=== PATIENT | female | born 1985 | race Caucasian/White ===

== ENCOUNTER 2017-11-15 07:38 | Emergency (ER) | payer BC ==
[2017-11-15 08:00] VITALS: BP 121/85
--- NOTE | 2017-11-15 08:28 | UC ---
Angelica Strickland Nilda, scribed for Iram Milligan MD on 11/15/17 at 0809 . Respiratory Complaint HPI - HPI Summary HPI Summary: This patient is a 32 year old F presenting to [facility] [place] with a chief complaint of constant chest and back tightness since waking up this morning. The patient rates the pain 4/10 in severity. Pt took motrin with little improvement. Patient reports productive cough (green, past 2 days), sinus and chest congestion, drainage in back of throat, nasal drainage, sinus tenderness, and headache. Patient denies fever, chills, wheezing, and SOB. Pt states recent sick contact with son who had pneumonia last week and who had bronchitis one month ago. Pt states shes taken ibuprofen, Emergen-C, and cough syrup. Today pt only took ibuprofen today. No prescribed medication except IUD. Pt smokes but denies recreational drug use. Flu vaccine not UTD. Patients medications reviewed. - History of Current Complaint Stated Complaint: COUGH Hx Obtained From: Patient Hx Last Menstrual Period: 06/20/16 Onset/Duration: Sudden Onset, Lasting Hours, Still Present Timing: Constant Severity Currently: Moderate Pain Intensity: 4 Pain Scale Used: 0-10 Numeric Character: Cough: Productive, Sputum Description: - green Aggravating Factors: Nothing Alleviating Factors: Nothing Associated Signs And Symptoms: Positive: Nasal Congestion, Sinus Discomfort. Negative: Dyspnea, Fever, Chills, Wheezing - Allergies/Home Medications Allergies/Adverse Reactions: Allergies Allergy/AdvReac Type Severity Reaction Status Date / Time Cephalexin [From Keflex] Allergy Severe Hives Verified 11/15/17 07:55 Codeine Allergy Severe Hives Verified 11/15/17 07:55 Erythromycin Allergy Severe GI Upset Verified 11/15/17 07:55 Penicillins Allergy Severe Hives Verified 11/15/17 07:55 Home Medications: Home Medications Cough Syrup 11/15/17 [History] Ibuprofen TAB* [Motrin TAB* 600 MG] 11/15/17 [History] PMH/Surg Hx/FS Hx/Imm Hx Previously Healthy: Yes - Surgical History Surgical History: Yes Surgery Procedure, Year, and Place: CHOLECYSTECTOMY, TONSILLECTOMY - Family History Known Family History: Positive: Hypertension, Diabetes - Social History Occupation: Employed Full-time Lives: With Family Alcohol Use: Occasionally Substance Use Type: None Smoking Status (MU): Light Every Day Tobacco Smoker Type: Cigarettes Amount Used/How Often: 1/2 PPD Review of Systems Constitutional: Other - negative fever, chills Skin: Negative Eyes: Negative ENT: Nasal Discharge, Sinus Congestion, Sinus Pain/Tenderness, Other - drainage in back of throat Respiratory: Cough - productive, green, 2days, Other - negative SOB, wheezing Cardiovascular: Chest Pain - tightness, Other - chest congestion Musculoskeletal: Other: - back tightness Neurological: Headache All Other Systems Reviewed And Are Negative: Yes Physical Exam Triage Information Reviewed: Yes Appearance: Well-Appearing, No Pain Distress, Well-Nourished Vital Signs: Initial Vitals Temp Pulse Resp BP Pulse Ox 99 F 87 16 121/85 100 11/15/17 07:57 11/15/17 07:57 11/15/17 07:57 11/15/17 07:57 11/15/17 07:57 Vital Signs Reviewed: Yes Eye Exam: Normal Eyes: Positive: Conjunctiva Clear ENT: Positive: Nasal congestion, Other - TM x 2 clear turbinates inflammed + max sinus pain + PND no erythema, no exudate No lymphadenopathy Dental Exam: Normal Neck exam: Normal Neck: Positive: Supple, Nontender, No Lymphadenopathy Respiratory: Positive: No accessory muscle use, Other: - + scattered wheeze, no rhonci. Negative: Respiratory distress Cardiovascular Exam: Normal Cardiovascular: Positive: RRR, No Murmur, Pulses Normal Abdominal Exam: Normal Abdomen Description: Positive: Nontender, No Organomegaly Bowel Sounds: Positive: Present Musculoskeletal Exam: Normal Musculoskeletal: Positive: Strength Intact Neurological Exam: Normal Neurological: Positive: Alert Psychological Exam: Normal Skin Exam: Normal UC Diagnostic Evaluation - Radiology Radiology Interpretation Completed By: Radiologist - CXR, per radiologist, reveals no active cardiopulmonary disease. - EKG Cardiac Rate: NL Cardiac Rhythm: Sinus: Normal - 77 bpm, no acute ST/T changes ST Segment: Normal Re-Evaluation - Re-Evaluation First Eval Re-Evaluation Time: 08:31 Comment: Reviewed EKG results with pt. Second Eval Re-Evaluation Time: 09:15 Change: Improved Comment: Pt feels better. Reviewed imaging results. Will Rx flonase, Doxy, albuterol. work note. secretion precaution. pt comfortable and in agreement with plan Respiratory Course/Dx - Course Course Of Treatment: Pt with cough, sinus congestion, PND. Pt with chest congestion and tightness today. Pt with + sick contact. Will check EKG, CXR, and give neb. Very little suspicion for cardiac origin - only risk factor tobacco - but reports some tightness. Pt in agreement with plan. An EKG reveals 77bpm, NSR, no acute ST/T changes. CXR, per radiologist, reveals no active cardiopulmonary disease. Dr. Milligan has reviewed this radiology report. - Differential Dx/Diagnosis Provider Diagnoses: acute bronchitis Discharge - Discharge Plan Condition: Stable Disposition: HOME Prescriptions: Albuterol HFA INHALER* [Ventolin HFA Inhaler*] 1 puff INH Q4H PRN #1 mdi PRN Reason: wheeze DOXYcycline CAP(*) [DOXYcycline 100MG CAP(*)] 100 mg PO BID #14 cap Fluticasone NASAL SPRAY 50MCG* [Flonase NASAL SPRAY 50MCG*] 2 spray BOTH NARES DAILY #1 btl Patient Education Materials: Acute Bronchitis (ED) Forms: *Work Release Referrals: No Primary Care Phys,NOPCP [Primary Care Provider] - Additional Instructions: - Stay well hydrated. Drink plenty of non-alcoholic, non-caffinated beverages - Take antibiotics exactly as prescribed until gone. - use nasal spray as instructed - Use your albuterol puffer - 2 puffs ever 4-6 hours for the next 2 days - then as needed - These infections are spread by oral secretions. Do not share eating or drinking utensils. Frequent hand washing is important. Clean items that may get your secretions on them such as cell phones, ipads, computer mouse, television remotes AFter you have been on antibiotics for 2 days, change your toothbrush and your pillowcase. -Contact your doctor to arrange a follow-up appointment this week. Call your doctor, return here or go to the emergency department with any questions or concerns The documentation as recorded by the Angelica champagne Nilda accurately reflects the service I personally performed and the decisions made by me, Iram Milligan MD.
[2017-11-15] MEDS ORDERED: Albuterol 2.5 MG/3 ML NEB.SOL* (0.083%) INH ONE (08:32)
[2017-11-15] MEDS ORDERED: Ipratropium 0.5MG/2.5ML NEB* 0.5 MG/2.5 ML NEB.SOLN INH ONE (08:32)
--- NOTE | 2017-11-15 09:01 | RAD ---
HISTORY: Cough, sputum, COMPARISONS: None VIEWS: 4: Frontal dual-energy and lateral views of the chest. FINDINGS: CARDIOMEDIASTINAL SILHOUETTE: The cardiomediastinal silhouette is normal. NEPTALI: The neptali are normal. PLEURA: The costophrenic angles are sharp. No pleural abnormalities are noted. LUNG PARENCHYMA: The lungs are clear. ABDOMEN: The upper abdomen is clear. There is no subphrenic gas. BONES AND SOFT TISSUES: No bone or soft tissue abnormalities are noted. OTHER: None. IMPRESSION: NO ACTIVE CARDIOPULMONARY DISEASE.
== END 2017-11-15 09:37 | disposition home or self-care (01) ==
LOC: UCEAST 07:38
DX: J20.9 Acute bronchitis, unspecified (principal)
CPT/HCPCS: 71020; 93005; 99213; G0463; J7644

== ENCOUNTER 2017-12-19 14:14 | Emergency (ER) | payer BC ==
[2017-12-19 14:44] VITALS: BP 136/92
--- NOTE | 2017-12-19 14:49 | UC ---
FLU HPI - HPI Summary HPI Summary: Pt presents with continued dry cough since mid october s/p bronchitis and treatment with antibiotic. This morning she woke up with body aches and felt like she had a fever, but did not take her temperature. She says that one of her coworkers was recently diagnosed with influenza. She denies SOB, chest pain , abdominal pain, n/v/d/c. She is still smoking - History of Current Complaint Chief Complaint: UCRespiratory Stated Complaint: COUGH, BODYACHES Time Seen by Provider: 12/19/17 14:49 Hx Obtained From: Patient Hx Last Menstrual Period: IUD Onset/Duration: Gradual Onset Severity Currently: Mild Severity Initially: Mild Pain Intensity: 3 Pain Scale Used: 0-10 Numeric - Allergy/Home Medications Allergies/Adverse Reactions: Allergies Allergy/AdvReac Type Severity Reaction Status Date / Time Cephalexin [From Keflex] Allergy Severe Hives Verified 12/19/17 14:37 Codeine Allergy Severe Hives Verified 12/19/17 14:37 Erythromycin Allergy Severe GI Upset Verified 12/19/17 14:37 Penicillins Allergy Severe Hives Verified 12/19/17 14:37 PMH/Surg Hx/FS Hx/Imm Hx Previously Healthy: Yes - Surgical History Surgical History: Yes Surgery Procedure, Year, and Place: CHOLECYSTECTOMY, TONSILLECTOMY - Family History Known Family History: Positive: Hypertension, Diabetes - Social History Occupation: Employed Full-time Lives: With Family Alcohol Use: Rare Substance Use Type: None Smoking Status (MU): Light Every Day Tobacco Smoker Type: Cigarettes Amount Used/How Often: 1/2 PPD Cessation Counseling: Counseled 3+Min - 10 Min - Immunization History Most Recent Influenza Vaccination: 2016 Review of Systems Constitutional: Fever, Other - Body aches Skin: Negative Eyes: Negative ENT: Negative Respiratory: Cough Cardiovascular: Negative Gastrointestinal: Negative All Other Systems Reviewed And Are Negative: Yes Physical Exam Triage Information Reviewed: Yes Appearance: Well-Appearing, No Pain Distress, Well-Nourished Vital Signs: Initial Vital Signs Temp 98.4 F 12/19/17 14:39 Pulse 86 12/19/17 14:39 Resp 18 12/19/17 14:39 BP 136/92 12/19/17 14:39 Pulse Ox 100 12/19/17 14:39 Vital Signs Reviewed: Yes Eyes: Positive: Conjunctiva Clear. Negative: Conjunctiva Inflamed, Discharge ENT: Positive: Hearing grossly normal, Pharynx normal, TMs normal, Uvula midline. Negative: Pharyngeal erythema, Nasal congestion, Nasal drainage, TM bulging, TM dull, TM red, Tonsillar swelling, Tonsillar exudate, Hoarse voice, Sinus tenderness Neck: Positive: Supple, Nontender, No Lymphadenopathy Respiratory: Positive: Chest non-tender, Lungs clear, Normal breath sounds, No respiratory distress, No accessory muscle use Cardiovascular: Positive: RRR, No Murmur, Pulses Normal Neurological: Positive: Alert Psychological: Positive: Age Appropriate Behavior Skin: Negative: rashes Flu Course/Dx - Course Course Of Treatment: POC influenza negative. According to new guidelines - treat symptomatic patients recently exposed to influenza. Will treat with Tamiflu and rx Tessalon for her ongoing cough. - Differential Dx/Diagnosis Provider Diagnoses: Body Aches. Cough Discharge - Discharge Plan Condition: Stable Disposition: HOME Prescriptions: Benzonatate CAP* [Tessalon 100 MG CAP*] 100 mg PO TID PRN #21 cap PRN Reason: Cough Oseltamivir CAP* [Tamiflu CAP*] 75 mg PO BID #10 cap Patient Education Materials: Influenza (ED) Forms: *Work Release Referrals: No Primary Care Phys,NOPCP [Primary Care Provider] - Additional Instructions: If you develop a fever, shortness of breath, chest pain, new or worsening symptoms - please call your PCP or go to the ED. Your blood pressure was high at todays visit. Please see your primary provider within 4 weeks for recheck and re-evaluation.
== END 2017-12-19 15:10 | disposition home or self-care (01) ==
LOC: UCEAST 14:14
DX: R05 Cough (principal); M79.1 Myalgia; Z90.49 Acquired absence of other specified parts of digestive tract; Z90.89 Acquired absence of other organs; Z88.1 Allergy status to other antibiotic agents; Z88.5 Allergy status to narcotic agent; Z88.0 Allergy status to penicillin; Z71.6 Tobacco abuse counseling; F17.210 Nicotine dependence, cigarettes, uncomplicated
CPT/HCPCS: 87502; 99212; G0463

== ENCOUNTER 2018-09-08 09:55 | Emergency (ER) | payer BC ==
[2018-09-08 10:13] VITALS: BP 138/98
--- NOTE | 2018-09-08 10:23 | UC ---
Respiratory Complaint HPI - HPI Summary HPI Summary: Pt c/o chest and nasal congestion and "burning in chest", cough with deep breathing. Pt states cough is worsening and has c/o generalized malaise. Pt reports that she gets "bronchitis each year" and "knows she needs an antibiotic. " - History of Current Complaint Chief Complaint: UCRespiratory Stated Complaint: COUGH, HEADACHE, CONGESTION Time Seen by Provider: 09/08/18 10:14 Hx Obtained From: Patient Hx Last Menstrual Period: iud ?: No Onset/Duration: Gradual Onset, Lasting Days, Still Present, Worse Since - osnet Timing: Constant Severity Initially: Mild Severity Currently: Mild Pain Intensity: 4 Character: Cough: Nonproductive Aggravating Factors: Exertion, Deep Breaths, Recumbent Position Associated Signs And Symptoms: Positive: Wheezing, URI, Nasal Congestion - Risk Factors Pulmonary Embolism Risk Factors: Negative, Smoking Cardiac Risk Factors: Negative, Smoking Pseudomonas Risk Factors: Negative Tuberculosis Risk Factors: Smoking - Allergies/Home Medications Allergies/Adverse Reactions: Allergies Allergy/AdvReac Type Severity Reaction Status Date / Time cephalexin [From Keflex] Allergy Hives Verified 09/08/18 10:14 codeine Allergy Hives Verified 09/08/18 10:14 erythromycin base Allergy GI Upset Verified 09/08/18 10:15 Penicillins Allergy GI Upset Verified 09/08/18 10:15 PMH/Surg Hx/FS Hx/Imm Hx Previously Healthy: Yes - Surgical History Surgical History: Yes Surgery Procedure, Year, and Place: CHOLECYSTECTOMY, TONSILLECTOMY - Family History Known Family History: Positive: Hypertension, Diabetes - Social History Occupation: Employed Full-time Lives: With Family Alcohol Use: Rare Substance Use Type: None Smoking Status (MU): Light Every Day Tobacco Smoker Type: Cigarettes Amount Used/How Often: 1/2 PPD Have You Smoked in the Last Year: Yes - Immunization History Most Recent Influenza Vaccination: 2016 Review of Systems Constitutional: Chills, Fatigue Skin: Negative Eyes: Negative Respiratory: Shortness Of Breath, Cough Cardiovascular: Negative Gastrointestinal: Negative Genitourinary: Negative Motor: Negative Neurovascular: Negative Musculoskeletal: Myalgia Neurological: Headache - with cough Psychological: Negative Is Patient Immunocompromised?: No All Other Systems Reviewed And Are Negative: Yes Physical Exam Triage Information Reviewed: Yes Appearance: Well-Appearing Vital Signs: Initial Vital Signs Temp 97.3 F 09/08/18 10:11 Pulse 89 09/08/18 10:11 Resp 17 09/08/18 10:11 BP 138/98 09/08/18 10:11 Pulse Ox 99 09/08/18 10:11 Vital Signs Reviewed: Yes Eye Exam: Normal ENT: Positive: Nasal congestion Dental Exam: Normal Neck exam: Normal Respiratory: Positive: Normal breath sounds Cardiovascular Exam: Normal Musculoskeletal Exam: Normal Neurological Exam: Normal Psychological Exam: Normal Skin Exam: Normal UC Diagnostic Evaluation - Laboratory O2 Sat by Pulse Oximetry: 99 Respiratory Course/Dx - Differential Dx/Diagnosis Differential Diagnosis/HQI/PQRI: Bronchitis, Influenza, Other - URI Provider Diagnoses: bronchitis Discharge - Sign-Out/Discharge Documenting (check all that apply): Patient Departure All imaging exams completed and their final reports reviewed: No Studies - Discharge Plan Condition: Stable Disposition: HOME Prescriptions: predniSONE TAB* [Deltasone 20 MG TAB*] 20 mg PO DAILY #4 tab Sulfamethox/Trimethoprim DS* [Bactrim DS 800/160 TAB*] 1 tab PO Q12H #20 tab Patient Education Materials: Acute Bronchitis (ED) Referrals: [facility] [Outside] - If Needed No Primary Care Phys,NOPCP [Primary Care Provider] - - Billing Disposition and Condition Condition: STABLE Disposition: Home
== END 2018-09-08 10:30 | disposition home or self-care (01) ==
LOC: UCEAST 09:55
DX: J40 Bronchitis, not specified as acute or chronic (principal); F17.210 Nicotine dependence, cigarettes, uncomplicated; Z88.1 Allergy status to other antibiotic agents; Z88.5 Allergy status to narcotic agent
CPT/HCPCS: 99212; G0463

== ENCOUNTER 2021-10-13 05:47 | Inpatient (IN) ==
[2021-10-13] MEDS ORDERED: Lactated Ringers 1000 ml BAG 1,000 ML IV SCH (06:00)
[2021-10-13] MEDS ORDERED: Buffered Lidocaine 1% SYRIN 1 ml INTRADERM ONE (06:00)
[2021-10-13] MEDS ORDERED: Clindamycin 900 MG/D5W BAG 900 MG/50 ML BAG IVPB ONE (06:12)
[2021-10-13] MEDS ORDERED: Heparin 5000 UNITS/ML 1 mL VIAL ONE (06:12)
[2021-10-13] MEDS ORDERED: Lidocaine 2% PF 5 ML VIAL ONE (06:58)
[2021-10-13] MEDS ORDERED: Ondansetron 4 mg VIAL 2 MG/ML 2 ml VIAL ONE (06:58)
[2021-10-13] MEDS ORDERED: Dexamethasone IV 4 MG/ML VIAL 1 ml VIAL ONE (06:58)
[2021-10-13] MEDS ORDERED: Midazolam 2 mg/2 ml VIAL 1 mg/ml 2 ml VIAL (2 mg) ONE (06:58)
[2021-10-13] MEDS ORDERED: Propofol 10 MG/ML 20 ML BTL ONE (06:58)
[2021-10-13] MEDS ORDERED: fentaNYL 250 mcg/5 ml 50 MCG/ML 5 ml VIAL (250 MCG) ONE (06:58)
[2021-10-13] MEDS ORDERED: Rocuronium 50 mg VIAL 10 mg/ml 5 ml VIAL (50 mg) ONE ×2 (06:58→09:42)
[2021-10-13] MEDS ORDERED: Sevoflurane BOTTLE ONE (06:59)
[2021-10-13] MEDS ORDERED: Bupivacaine 0.25% SDV 30 ML ONE (07:13)
[2021-10-13] MEDS ORDERED: Methylene Blue 0.5 % 50 MG/10 ML AMP IV ONE (07:13)
[2021-10-13] MEDS ORDERED: Lidocaine 1% w EPI 1:100,000 MDV 20 ML VIAL ONE (08:01)
[2021-10-13] MEDS ORDERED: Naloxone 0.4 mg VIAL 0.4 mg/ml 1 ml VIAL IV PRN (10:13)
[2021-10-13] MEDS ORDERED: Ondansetron 4 mg VIAL 2 MG/ML 2 ml VIAL IV PRN ×2 (10:13→11:11)
[2021-10-13] MEDS ORDERED: Acetaminophen IV 1 GM/100ML 100 ML IV ONE ×3 (10:13→11:36)
[2021-10-13] MEDS ORDERED: HYDROmorphone 1 MG/1 ML SYRINGE IV PRN (10:13)
[2021-10-13] MEDS ORDERED: DiMENhydriNATE IV 50 mg/ml 1 ml VIAL IV PUSH PRN (10:13)
[2021-10-13] MEDS ORDERED: diPHENhydraMINE IV 50 MG/ML 1 ml VIAL (BENADRYL) SLOW PUSH PRN (11:11)
[2021-10-13] MEDS ORDERED: HYDROmorphone 0.5 MG/0.5 ML SYRINGE IV SLOW PU PRN (11:11)
[2021-10-13] MEDS ORDERED: HYDROmorphone 1 MG/1 ML SYRINGE IV SLOW PU PRN (11:11)
[2021-10-13] MEDS ORDERED: fentaNYL 100 mcg/2 ml 50 MCG/ML VIAL ONE (11:36)
[2021-10-13] MEDS: fentaNYL 100 mcg/2 ml 50 MCG/ML VIAL IV PRN ×2 (11:39→11:46)
[2021-10-13] MEDS: Lactated Ringers 1000 ml BAG 1,000 ML IV SCH ×2 (13:57→20:19)
[2021-10-13] MEDS: Heparin 5000 UNITS/ML 1 mL VIAL SUBCUT SCH ×2 (14:27→20:19)
[2021-10-13] MEDS: Famotidine IV 10 MG/ML 2 ml VIAL (20 mg) IV SLOW PU SCH (20:19)
[2021-10-14] MEDS: Lactated Ringers 1000 ml BAG 1,000 ML IV SCH ×2 (03:02→09:47)
[2021-10-14] MEDS: Heparin 5000 UNITS/ML 1 mL VIAL SUBCUT SCH ×2 (05:12→14:54)
[2021-10-14] MEDS: Famotidine IV 10 MG/ML 2 ml VIAL (20 mg) IV SLOW PU SCH (09:23)
[2021-10-14 11:10] VITALS: BP 110/79
[2021-10-14] MEDS ORDERED: D5W 1/2 NS KCl 20 meq 1000 ml 1,000 ML IV SCH (14:00)
== END 2021-10-14 16:00 | disposition home or self-care (01) | DRG 621 ==
LOC: AA 05:47 → SSU 13:11
PROVIDERS: ADMIT Surgery; ATTEND Surgery